=== PATIENT | male | born 1970 | race Caucasian/White ===

== ENCOUNTER 2019-09-01 07:53 | Emergency (ER) | payer OTHER ==
[~2019-09-01] VITALS: Ht 190.5 cm; Wt 122.5 kg
[~2019-09-01 07:53] MED LIST: BACTRIM DS TAB1 EACH PO; CEPHALEXIN500 MG; CEPHALEXIN500 MG PO; CIPRO500 MG PO; CIPROFLOXACIN500 MG; CLINDAMYCIN HC300 MG PO; IBUPROFEN800 MG PO; KEFLEX500 MG PO; LEVOTHYROXINE125 MCG PO; SEPTRA DS TABL1 EACH PO
[2019-09-01] MEDS ORDERED: VALIUM10 MG PO (09:15)
== END 2019-09-01 09:19 | disposition home or self-care (01) ==
LOC: ED 07:53
DX: M62.830 Muscle spasm of back (principal); F17.200 Nicotine dependence, unspecified, uncomplicated
CPT/HCPCS: 96372; 99283; J1170; J1885